=== PATIENT | female | born 1965 | race Caucasian/White ===

== ENCOUNTER 2020-05-09 20:03 | Emergency (ER) | payer BC ==
[~2020-05-09] VITALS: Ht 162.6 cm; Wt 90.7 kg
--- NOTE | 2020-05-09 20:20 | NUR ---
ED Nurse Note: Patient walked into the ED with request from pts doctor to get BAM. Patient was tested covid positive yesterday. Patient stated having mild dyspnea upon exertion but denies CP, N/V/D. Pt is AAOX4 and ambulatory. VSS as documented
--- NOTE | 2020-05-09 20:25 | Emergency Room Report ---
History of Present Illness General Chief Complaint: Flu Like Symptoms Source: Patient Present Illness HPI Patient started feeling ill on Tuesday. She was tested for Covid yesterday. She tested positive. She has a history of HIV and her doctor told her to come to get BAM. Patient is felt achy. She has also felt feverish but not documented her temperature. Patient has monitored her own pulse oximetry. She gets some dyspnea on exertion but says it is not bad. When she walks her heart rate sometimes goes up to 120 but then comes back down to normal. She denies chest pain during these times. She vomited 1 time 2 days ago. She is also had yellowish-brown diarrhea without any blood. She feels generalized aches and rates this pain 5/10 at this time. History of pneumocystis in the past many years ago. Stable on antiretrovirals. Hyperlipidemia No chills, sore throat, dysuria, abdominal pain, rashes, depression, anxiety, visual changes, dizziness, headache. Allergies: Coded Allergies: AMOXICILLIN (Verified Allergy, Unknown, 05/09/20) AZITHROMYCIN (Verified Allergy, Unknown, 05/09/20) PENICILLINS (Verified Allergy, Unknown, 05/09/20) SULFAMETHOXAZOLE (Verified Allergy, Unknown, 05/09/20) TRIMETHOPRIM (Verified Allergy, Unknown, 05/09/20) COVID-19 Screening Contact w/high risk pt: Yes Experienced COVID-19 symptoms?: Yes COVID-19 Testing performed [employer]: Yes - 05/08/20 COVID-19 Screening: Positive COVID-19 COVID-19 Testing Source: [email or web address] Patient History Past Medical History: see triage record, HIV Social History: Reports: drug use - THC; Denies: smoking Social History Narrative She believes she caught this from her daughter who sells cannabis. She works from home. Last Menstrual Period: n/a Reviewed Nursing Documentation: PMH: Agreed; PSxH: Agreed Nursing Documentation-PMH Past Medical History: No History, Except For Hx Cardiac Problems: Yes - hyperlipidemia, HIV Hx Asthma: Yes Review of Systems All Other Systems: negative except mentioned in HPI Physical Exam Vital Signs Date Time Temp Pulse Resp B/P (MAP) Pulse Ox O2 Delivery O2 Flow Rate FiO2 05/09/20 20:16 99.0 88 18 137/88 (104) 97 Room Air Sp02 EP Interpretation: reviewed, normal General Appearance: well appearing, no apparent distress, GCS 15, non-toxic Head: normocephalic Eyes: bilateral eye normal inspection, bilateral eye PERRL, bilateral eye EOMI ENT: moist mucus membranes Neck: supple Respiratory: lungs clear, normal breath sounds Cardiovascular #1: regular rate, rhythm, no edema Cardiovascular #2: 2+ radial (R) Gastrointestinal: normal inspection, normal bowel sounds, non tender, no mass, non-distended Genitourinary: no CVA tenderness Musculoskeletal: back normal, normal range of motion, no calf tenderness, gait/station normal Neurologic: alert, oriented x3, grossly normal Psychiatric: mood/affect normal Skin: no rash, warm/dry Medical Decision Making Diagnostic Impression: Primary Impression: COVID-19 Additional Impressions: Upper respiratory infection Qualified Codes: J06.9 - Acute upper respiratory infection, unspecified Diarrhea Qualified Codes: R19.7 - Diarrhea, unspecified ER Course Patient Covid positive with history of HIV presents for BAM. Patient is symptomatic. Patient based on clinical findings not needing hospitalization at this time. Oxygen saturation is adequate. BAM is ordered. In addition Tylenol administered. Slight concern over increased heart rate with exertion however clinical exam is against pulmonary embolus or DVT at this time. Patient received BAM without difficulty and tolerated it well. Pain is improved. Discussed treatment plan and questions answered. Patient stable for outpatient observation and treatment. Rhythm Strip Diag. Results EP Interpretation: yes Rhythm: NSR, no PVC's, no ectopy Last Vital Signs Date Time Temp Pulse Resp B/P (MAP) Pulse Ox O2 Delivery O2 Flow Rate FiO2 05/09/20 23:10 98.5 88 18 137/88 97 Room Air Status: improved Disposition: HOME, SELF-CARE Condition: Improved Bryan Contreras MD May 09, 2020 20:25
--- NOTE | 2020-05-09 20:25 | NUR ---
ED Nurse Note: ERMD at bedside
[2020-05-09 20:44] VITALS: BP 137/88
[2020-05-09] MEDS: Bamlanivimab 700 MG in NS 275 ML IVPB SCH (21:17)
[2020-05-09] MEDS: Bamlanivimab Fact Sheet MISC ONE (21:18)
[2020-05-09] MEDS ORDERED: SYMTUZA 800-151 EACH PO (22:00)
[2020-05-09] MEDS ORDERED: LIPITOR20 MG ORAL (22:00)
--- NOTE | 2020-05-09 23:09 | NUR ---
ER DISCHARGE NOTE: Patient is cleared to be discharged per ERMD, pt is aox4, on room air, with stable vital signs. pt was given dc and prescription instructions, pt was able to verbalize understanding, pt id band and iv site removed without complications. pt is able to ambulate with steady gait. pt took all belongings.
[2020-05-09 23:10] VITALS: BP 137/88
== END 2020-05-09 23:10 | disposition home or self-care (01) ==
LOC: EMR 20:13
DX: U07.1 COVID-19 (principal); J06.9 Acute upper respiratory infection, unspecified; R19.7 Diarrhea, unspecified; J45.909 Unspecified asthma, uncomplicated; Z23 Encounter for immunization; E78.5 Hyperlipidemia, unspecified; F12.90 Cannabis use, unspecified, uncomplicated; Z21 Asymptomatic human immunodeficiency virus [HIV] infection status; Z88.1 Allergy status to other antibiotic agents; Z88.0 Allergy status to penicillin; Z88.2 Allergy status to sulfonamides
CPT/HCPCS: 96365; 99284; J7050; Q0239